=== PATIENT | male | born 1990 | race Caucasian/White ===

== ENCOUNTER 2019-04-08 08:55 | Day surgery (SDC) | payer OTHER ==
[~2019-04-08 08:55] MED LIST: DEXAMETHASONE SOD PHOSPHATE INJ 4 MG/1 ML VIAL ONE; FENTANYL CITRATE INJ/PF 250 MCG/5 ML AMPULE ONE; LIDOCAINE 0.5% INJ-PF (5 MG/ML) 50 ML SDV ONE; MIDAZOLAM 2 MG/2 ML INJ ONE; ONDANSETRON HCL INJ/PF 4 MG/2 ML SDV ONE; PROPOFOL INJ 200 MG/20 ML VIAL IV ONE
[2019-04-08] MEDS ORDERED: CEFAZOLIN SODIUM 2 GM in DEXTROSE 5%-WATER 100 ML IV ONE (09:30)
[2019-04-08 10:14] LABS: ABSOLUTE EOSINOPHILS # (AUTO) 0.4 10^3/uL (0.0-0.6); ABSOLUTE LYMPHOCYTES (AUTO) 1.6 10^3/uL (0.5-4.7); ABSOLUTE MONOCYTES (AUTO) 0.7 10^3/uL (0.1-1.4); ABSOLUTE NEUT (AUTO) 3.4 10^3/uL (1.7-8.2); BASOPHILS % (AUTO) 0.7 % (0-2); EOSINOPHILS % (AUTO) 6.2 % (0-6); HEMATOCRIT 40.3 % (37.9-51.0); HEMOGLOBIN 14.6 g/dL (13.5-17.0); LYMPHOCYTES % (AUTO) 26.5 % (13-45); MEAN CORPUSCULAR HEMOGLOBIN 29.6 pg (27.0-33.4); MEAN CORPUSCULAR HGB CONC 36.1 g/dL (32.0-36.0); MEAN CORPUSCULAR VOLUME 82 fl (80-97); MONOCYTES % (AUTO) 10.9 % (3-13); PLATELET COUNT 193 10^3/uL (150-450); RED BLOOD COUNT 4.92 10^6/uL (4.35-5.55); RED CELL DISTRIBUTION WIDTH 12.9 % (11.5-14.0); SEGMENTED NEUTROPHILS % (AUTO) 55.7 % (42-78); TOTAL CELLS COUNTED % (AUTO) 100 %; WHITE BLOOD COUNT 6.1 10^3/uL (4.0-10.5)
[2019-04-08 10:29] LABS: ANION GAP 9 (5-19); BLOOD UREA NITROGEN 13 mg/dL (7-20); CALCIUM 9.2 mg/dL (8.4-10.2); CARBON DIOXIDE 25 mmol/L (22-30); CHLORIDE 107 mmol/L (98-107); GLUCOSE 87 mg/dL (75-110); POTASSIUM 4.2 mmol/L (3.6-5.0)
[2019-04-08] MEDS ORDERED: FENTANYL CITRATE INJ/PF 100 MCG/2 ML AMPUL ONE (11:52)
[2019-04-08] MEDS ORDERED: BUPIVACAINE HCL 0.5 % INJ/PF 30 ML SDV ONE (12:16)
[2019-04-08] MEDS ORDERED: ROPIVACAINE HCL 0.5% INJ/PF (5 MG/1 ML) 30 ML SDV ONE (14:26)
[2019-04-08] MEDS ORDERED: LIDOCAINE 1%/EPINEPHRINE INJ 20 ML VIAL ONE ×2 (14:26→14:27)
[2019-04-08] MEDS ORDERED: LIDOCAINE 2% INJ (20 MG/ML) 20 ML MDV ONE (14:26)
[2019-04-08] MEDS ORDERED: DIPHENHYDRAMINE HCL 50 MG/ML VIAL IV PRN (14:45)
[2019-04-08] MEDS ORDERED: MORPHINE SULFATE 10 MG/ML INJ IV PRN (14:45)
[2019-04-08] MEDS ORDERED: FENTANYL CITRATE INJ/PF 100 MCG/2 ML AMPUL IV PRN ×3 (14:45)
[2019-04-08] MEDS ORDERED: PROMETHAZINE HCL INJ 25 MG/1 ML VIAL IV PRN ×2 (14:45)
[2019-04-08] MEDS ORDERED: MEPERIDINE HCL/PF INJ 25 MG/1 ML DISP.SYRIN IV PRN (14:45)
[2019-04-08] MEDS ORDERED: HYDROMORPHONE HCL INJ/PF 2 MG/ML AMPULE IV PRN (15:00)
[2019-04-08] MEDS ORDERED: OXYCODONE-ACETAMINOPHEN 5-325 MG TABLET PO PRN (15:00)
[2019-04-08] MEDS ORDERED: ONDANSETRON HCL INJ/PF 4 MG/2 ML SDV IV PRN (15:00)
--- NOTE | 2019-04-08 15:00 | Operative Report ---
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 Right diagnostic arthroscopy with debridement TFCC tear. 2. Open reduction fixation proximal scaphoid nonunion with distal radius autograft SURGEON: JACOB HEBERT ANESTHESIA: GA COMPLICATIONS: None ESTIMATED BLOOD LOSS: Minimal PROCEDURE: Indication for above procedure: 28-year-old male with history of injury to his right wrist. Patient had continued pain. Radiographs and MRI were then performed demonstrating proximal pole scaphoid nonunion. At that point I discussed treatment options with the patient including operative versus nonoperative intervention. Risk and benefits of operative procedure were explained patient verbalized understanding consented for surgical procedure. Procedure In Detail: Patient was seen and evaluated in the preoperative holding area. The RIGHT upper extremity was initialized and marked. Patient received 2g of Ancef IV for bacterial prophylaxis. Patient was taken back to the operative room where transferred to the operative table and placed under general anesthesia. Once they were adequately anesthetized a nonsterile tourniquet was placed on the upper extremity. A surgical team debriefing was performed ensuring all instrumentation was available, the surgical procedure was discussed with possible concerns reviewed. The upper extremity was prepped with chlorhexidine and alcohol and draped in a sterile fashion. A timeout was done identifying correct patient, procedure and extremity everyone in attendance agree with this and verbalized no concerns. The extremity was exsanguinated the tourniquet was inflated to 250 mmHg. Patient was placed in 15 pounds of traction 3-4 portal was established arthroscope was introduced into the radiocarpal joint. Diagnostic arthroscopy was performed demonstrating no evidence of scapholunate membranous. Radial scaphoid capitate/long and short radiolunate ligaments remained intact. There was central TFCC tear with fraying of the underlying distal ulna. A 6U was established with an arthroscopic biter the edges of the TFCC were debrided along with the arthroscopic shaver. Synovitis within the prestyloid recess was noted and partial synovectomy performed. Remainder of the TFCC tear was debrided with arthroscopic wand until the edges were a smooth surface. Further diagnostic arthroscopy demonstrated no evidence of dorsal scapholunate ligament injury at that point decision was made to proceed with fixation of the proximal scaphoid. Longitudinal skin incision was made just ulnar to Lorrie's tubercle. Blunt dissection was performed. Any peripheral veins were coagulated bipolar cautery distal portion of the third dorsal compartment was opened and the EPL tendon retracted. T-shaped capsulotomy was made within the radiocarpal joint. Under direct visualization the proximal scaphoid fracture was noted with intact cartilage along its volar and radial aspect. Scapholunate ligament remained intact without evidence of widening or disruption. Small defect noted dorsally. Debridement was then performed to the proximal and distal fragment down to normal appearing cancellus bone. A small cortical window was placed adjacent to Lorrie's tubercle and cancellus autograft was obtained. This was then impacted in a 10 cc syringe to further compress the bone graft. Wound was copiously irrigated with normal saline. Bone graft was densely impacted into the cavitary region of the scaphoid. C-arm fluoroscopy was then obtained demonstrating acceptable alignment of the scaphoid. K wire was placed perpendicular to the fracture to maintain reduction. Given the small size of the fragment decision was made to proceed with fixation utilizing mini fragmentary screws as opposed to headless compression screw. Appropriate sized K wire was passed through the proximal and distal fragment and measured to the appropriate depth. Countersink was utilized. A 22 mm 1.7 mm cortex screw was then placed across the fragment. Once again drilling with a K wire a second point 0.7 mm x 22 mm screw was placed. At completion the screws were comfortably countersunk below the articular cartilage. There is no crepitus with range of motion. C-arm fluoroscopy was then obtained confirming appropriate placement of the screws perpendicular to the fracture. Bony defect within the distal radius was filled with cancellus bone chips. Periosteum was closed interrupted 3-0 Vicryl suture to avoid attritional injury to the EPL tendon. Wound was then copiously irrigated with normal saline. Capsule was closed with interrupted 3-0 Ethibond suture. Tourniquet was d eflated. Any peripheral bleeding was controlled with bipolar cautery. Subcutaneous tissues were closed with 4-0 Monocryl suture. Skin was closed with subcuticular 4-0 Monocryl reinforced with Dermabond and Steri-Strips. Patient was placed in a 3 inch volar splint. Sponge counts, instrument counts, needle counts were correct. Patient was then awoken from anesthesia. Transferred from the operating room table to the operating room stretcher. There was no intraoperative complications patient tolerated procedure well stable to PACU. Postoperative plan: Patient follow in the office in 2 weeks at which point we will obtain radiographs and transition to short arm cast. Patient will begin bone stimulator immediately.
--- NOTE | 2019-04-08 15:00 | Discharge Summary ---
Discharge Summary (SDC) - Discharge Final Diagnosis: Right scaphoid nonunion. Date of Surgery: 04/08/19 Discharge Date: 04/08/19 Condition: Good Treatment or Instructions: Schedule Follow Up w/ Dr. Chad Mcintosh @ [facility] for Surgery to be seen in 10-14 days or as scheduled [place]: [place]: [place]: Ice and elevate Keep splint clean/dry/intact, do not remove. If your fingers become numb please unwrap the Perico wrap but leave the splint in place, if the sensation does not return within 30 minutes please return to the emergency department. May begin finger range of motion attempting to make full fist. Please use ibuprofen (Motrin or Advil) 600-800 mg every 8 hours as needed for pain or fever DO NOT TAKE w/ TORADOL may use once TORADOL complete. You may also use acetaminophen (Tylenol) 1000 mg every 4-6 hours as needed for pain or fever. Please be aware that many medications contain acetaminophen, do not exceed a total of 1000 mg of acetaminophen every 6 hours. If ibuprofen and acetaminophen are not sufficient for your pain you may take the Percocet/Ephrata. Please be aware that the Percocet/Ephrata does contain Tylenol. Stool softener of choice when on pain medication. USE OF [id number] IBUPROFEN: Ibuprofen (Advil, Nuprin, Medipren, Motrin IB) is a medication for fever and pain control. In addition, it has anti- inflammatory effects which may be beneficial, especially in the treatment of injuries. It's best to take ibuprofen with food. Persons with ulcer disease or allergy to aspirin should notify their physician of this before taking ibuprofen. Ibuprofen can be given every four to six hours, for a total of four doses daily. Age Pain or fever dose Antiinflammatory dose 6-8 yr 200 mg (1 tab) 200 mg (1 tab) 9-11 yr 200 mg (1 tab) 200-400 mg (1-2 tab) 11-14 yr 200-400 mg (1-2 tab) 400 mg (2 tab) 15-adult 400 mg (2 tab) 600 mg (3 tab) ORAL NARCOTIC MEDICATION: You have been given a prescription for pain control. This medication is a narcotic. It's best taken with food, as nausea can result if taken on an empty stomach. Don't operate machinery or drive within six hours of taking this medication. Do not combine this medicine with alcohol, or with any medication which can cause sedation (such as cold tablets or sleeping pills) unless you get permission from the physician. Narcotics tend to cause constipation. If possible, drink plenty of fluids and eat a diet high in fiber and fruits. Please be aware that prescription narcotics also have the potential for abuse. People become addicted to these medications because of the general sense of wellbeing that they induce. This feeling along with a significant reduction in tension, anxiety, and aggression provides a stimulating seductive quality to these drugs. Once your pain is under control, we encourage you to discard your unused narcotics. Referrals: AMY SHLEDON MD [Primary Care Provider] - Discharge Diet: As Tolerated Respiratory Treatments at Home: Deep Breathing/Coughing, Incentive Spirometer Discharge Activity: No Lifting Over 10 Pounds, No Lifting/Push/Pulling Report the Following to Your Physician Immediately: Fever over 101 Degrees, Unusual Bleeding, Redness, Swelling, Warmth, Increased Soreness
--- NOTE | 2019-04-08 15:46 | RADIOLOGY REPORT (SQ) ---
EXAM DESCRIPTION: WRIST RIGHT 2 VIEWS COMPLETED DATE/TIME: 04/08/2019 3:37 pm REASON FOR STUDY: ORIF SCAPHOID M25.531 PAIN IN RIGHT WRIST COMPARISON: None. FLUOROSCOPY TIME: 1 minutes 8 seconds 6 images saved to PACS. TECHNIQUE: Intra-operative images acquired during surgical procedure to evaluate progress. NUMBER OF IMAGES: 6 LIMITATIONS: None. FINDINGS: Fluoroscopic images from ORIF scaphoid fracture with 2 orthopedic screws. Alignment is an atomic. IMPRESSION: IMAGE(S) OBTAINED DURING PROCEDURE. COMMENT: Quality ID [id number]: Final reports for procedures using fluoroscopy that document radiation exp osure indices, or exposure time and number of fluorographic images (if radiation exposure indices are not available) Please consult full operative report of the attending physician for description of the procedure. TECHNICAL DOCUMENTATION: JOB ID: [id number] [employer]- All Rights Reserved Reading location - IP/workstation name: [email or web address]
--- NOTE | 2019-04-08 16:04 | RADIOLOGY REPORT (SQ) ---
EXAM DESCRIPTION: NO CHG FLUORO COMPLETE DATE/TIME: 04/08/2019 3:37 pm REASON FOR STUDY: ORIF SCAPHOID M25.531 PAIN IN RIGHT WRIST FINDINGS: Please see combined report for performance of procedure and radiologic supervision and int erpretation. IMPRESSION: Please see combined report for performance of procedure and radiologic supervision and i nterpretation. Reading location - IP/workstation name: [email or web address]
[2019-04-08 17:31] VITALS: BP 124/72
== END 2019-04-08 16:55 | disposition home or self-care (01) ==
LOC: OROUT 08:55
PROVIDERS: ATTEND Orthopaedic Surgery
DX: S62.031K Displaced fracture of proximal third of navicular [scaphoid] bone of right wrist, subsequent encounter for fracture with nonunion (principal); X58.XXXD Exposure to other specified factors, subsequent encounter; S63.591A Other specified sprain of right wrist, initial encounter; X58.XXXA Exposure to other specified factors, initial encounter; Y93.61 Activity, american tackle football; M25.531 Pain in right wrist
CPT/HCPCS: 36415; 85025; 80048; 73100; 01830; 25440; 29846; J2795; J2250; J3490 ×3; J0690; J1100; J3010; J2405; J7060; J2704

== ENCOUNTER 2019-08-19 05:46 | Day surgery (SDC) | payer OTHER ==
[2019-08-14 10:04] LABS: ABSOLUTE BASOPHILS # (AUTO) 0.1 10^3/uL (0.0-0.2); ABSOLUTE EOSINOPHILS # (AUTO) 0.4 10^3/uL (0.0-0.6); ABSOLUTE LYMPHOCYTES (AUTO) 1.5 10^3/uL (0.5-4.7); ABSOLUTE MONOCYTES (AUTO) 0.7 10^3/uL (0.1-1.4); ABSOLUTE NEUT (AUTO) 3.9 10^3/uL (1.7-8.2); BASOPHILS % (AUTO) 0.9 % (0-2); EOSINOPHILS % (AUTO) 6.1 % (0-6); HEMATOCRIT 42.7 % (37.9-51.0); HEMOGLOBIN 15.5 g/dL (13.5-17.0); LYMPHOCYTES % (AUTO) 22.5 % (13-45); MEAN CORPUSCULAR HEMOGLOBIN 29.9 pg (27.0-33.4); MEAN CORPUSCULAR HGB CONC 36.4 g/dL (32.0-36.0); MEAN CORPUSCULAR VOLUME 82 fl (80-97); MONOCYTES % (AUTO) 10.7 % (3-13); PLATELET COUNT 228 10^3/uL (150-450); RED BLOOD COUNT 5.19 10^6/uL (4.35-5.55); RED CELL DISTRIBUTION WIDTH 13.3 % (11.5-14.0); SEGMENTED NEUTROPHILS % (AUTO) 59.8 % (42-78); TOTAL CELLS COUNTED % (AUTO) 100 %; WHITE BLOOD COUNT 6.5 10^3/uL (4.0-10.5)
[2019-08-14 10:26] LABS: ANION GAP 9 (5-19); BLOOD UREA NITROGEN 17 mg/dL (7-20); CALCIUM 9.8 mg/dL (8.4-10.2); CARBON DIOXIDE 26 mmol/L (22-30); CHLORIDE 103 mmol/L (98-107); GLUCOSE 79 mg/dL (75-110); POTASSIUM 4.7 mmol/L (3.6-5.0)
[~2019-08-19 05:46] MED LIST changes: +CEFAZOLIN 2 GM/D5W RTU 2 GM/50 ML RTUPB IV PRN; -DEXAMETHASONE SOD PHOSPHATE INJ 4 MG/1 ML VIAL ONE; -FENTANYL CITRATE INJ/PF 250 MCG/5 ML AMPULE ONE; +LACTATED RINGERS 1000 ML IV PRN; -LIDOCAINE 0.5% INJ-PF (5 MG/ML) 50 ML SDV ONE; +LIDOCAINE 0.5% INJ-PF (5 MG/ML) 50 ML SDV SUBCUT PRN; -MIDAZOLAM 2 MG/2 ML INJ ONE; -ONDANSETRON HCL INJ/PF 4 MG/2 ML SDV ONE; -PROPOFOL INJ 200 MG/20 ML VIAL IV ONE
[2019-08-19] MEDS ORDERED: CEFAZOLIN 2 GM/D5W RTU 2 GM/50 ML RTUPB IV ONE (06:22)
[2019-08-19] MEDS ORDERED: MIDAZOLAM 2 MG/2 ML INJ ONE (06:27)
[2019-08-19] MEDS ORDERED: FENTANYL CITRATE INJ/PF 100 MCG/2 ML AMPUL ONE ×2 (06:27→10:32)
[2019-08-19] MEDS ORDERED: DEXAMETHASONE SOD PHOSPHATE INJ 4 MG/1 ML VIAL ONE (06:27)
[2019-08-19] MEDS ORDERED: ONDANSETRON HCL INJ/PF 4 MG/2 ML SDV ONE (06:27)
[2019-08-19] MEDS ORDERED: PROPOFOL INJ 200 MG/20 ML VIAL IV ONE (06:28)
[2019-08-19] MEDS ORDERED: LIDOCAINE 0.5% INJ-PF (5 MG/ML) 50 ML SDV ONE (06:34)
[2019-08-19] MEDS: BUPIVACAINE HCL 0.5 % INJ/PF 30 ML SDV ONE ×3 (08:20→10:03)
[2019-08-19] MEDS ORDERED: MORPHINE SULFATE 10 MG/ML INJ IV PRN ×2 (09:53→10:25)
[2019-08-19] MEDS ORDERED: MEPERIDINE HCL/PF INJ 25 MG/1 ML DISP.SYRIN IV PRN (09:53)
[2019-08-19] MEDS ORDERED: DIPHENHYDRAMINE HCL 50 MG/ML VIAL IV PRN (09:53)
[2019-08-19] MEDS ORDERED: FENTANYL CITRATE INJ/PF 100 MCG/2 ML AMPUL IV PRN ×3 (09:53)
[2019-08-19] MEDS ORDERED: PROMETHAZINE HCL INJ 25 MG/1 ML VIAL IV PRN ×2 (09:53)
[2019-08-19] MEDS ORDERED: ONDANSETRON HCL INJ/PF 4 MG/2 ML SDV IV PRN ×2 (09:53→10:25)
[2019-08-19] MEDS ORDERED: OXYCODONE-ACETAMINOPHEN 5-325 MG TABLET PO PRN (10:25)
--- NOTE | 2019-08-19 10:25 | Operative Report ---
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 Initial surgery was attempted to reconstruct proximal pole scaphoid nonunion with local distal radius autograft unfortunately patient continued to progress nonunion at that point we discussed treatment options including operative versus nonoperative intervention. Decision was made to proceed with proximal hamate autograft. Risk and benefits of surgical procedure were explained patient verbalized understanding consented for surgical procedure. Procedure In Detail: Patient was seen and evaluated in the preoperative holding area. The RIGHT upper extremity was initialized and marked. Patient received 2g of Ancef IV for bacterial prophylaxis. Patient was taken back to the operative room where transferred to the operative table and placed under general anesthesia. Once they were adequately anesthetized a nonsterile tourniquet was placed on the upper extremity. A surgical team debriefing was performed ensuring all instrumentation was available, the surgical procedure was discussed with possible concerns reviewed. The upper extremity was prepped with chlorhexidine and alcohol and draped in a sterile fashion. A timeout was done identifying correct patient, procedure and extremity everyone in attendance agree with this and verbalized no concerns. The extremity was exsanguinated the tourniquet was inflated to 250 mmHg. Prior skin incision was utilized extending proximally and distally. Blunt dissection was performed. Small peripheral veins were coagulated with bipolar cautery. Superficial radial nerve was identified and retracted. Extensor retinaculum was then opened along the line of the third dorsal compartment and extensor tendons elevated proximal aspect remained intact. This exposed the wrist capsule. A capsule sparing capsulotomy was then made which was radial based. Dimensions of the capsulotomy were confirmed with C arm fluoroscopy. Adequate exposure of the capitate hamate joint was confirmed with C arm fluoroscopy as well. Proximal aspect of the scaphoid was then identified. There was small chondral defect along the distal radius however remaining cartilage remained intact without abnormality. The proximal pole of the scaphoid was identified including the fracture line. Prior screws were successfully removed. Proximal pole of the scaphoid was then excised maintaining the scapholunate ligament. The remaining distal scaphoid was then debrided with a rondure and curette until normal bleeding cancellus bone was identified. Attention then turned to harvesting of the hamate graft. Dimension of the hamate graft was confirmed with the prior scaphoid fragment and remaining defect at the proximal pole of the scaphoid. Once dimensions were confirmed C arm fluoroscopy was obtained to identify the hamate hook. The hamate graft was then measured. Hohmann retractor was placed along the triquetral hamate articulation to protect the triquetral hamate ligament. Oscillating saw and irrigation was then utilized to initiate the hamate cut which was then completed with a osteotome. The capitate hamate ligament was elevated from the anterior surface of the capitate to to use for later scapholunate ligament repair. Wound was then copiously irrigated with normal saline. The hamate fragment was then inserted along the proximal pole of the scaphoid and rotated 180 degrees so that the capitate hamate ligament with malfunction as the scapholunate ligament. A derotational K wire was placed C arm fluoroscopy was obtained confirming appropriate fit of the hamate graft once appropriate fit was confirmed then proceeded with fixation. Care was placed into the center center position of the hamate graft and distal scaphoid. Measured to be 28 mm thus a 24 mm screw was to be used. K wire was overdrilled and 24 mm mini Acutrak screw was inserted which provided interfragmentary compression at the scaphoid fracture site. C-arm was obtained confirming congregation of scaphoid height with appropriate placement and size of the hamate graft. Derotational K wire was then removed. There was no evidence of DISI deformity of the lunate. The scapholunate ligament was then repaired with interrupted 2-0 Ethibond suture. Wrist was placed through full range of motion there is no evidence of scapholunate instability or midcarpal instability on clinical examination or fluoroscopy. Normal scapholunate angle was noted on lateral view. Wound was then irrigated with normal saline. Capsule was reapproximated with interrupted 2-0 Ethibond suture. 30 cc of 0.5% of bupivacaine without epinephrine was injected for postop pain control. Extensor retinaculum was closed with interrupted 3-0 Monocryl suture. Tourniquet was then deflated any peripheral bleeding was controlled with bipolar cautery. Subcutaneous tissues were closed with interrupted 3-0 Monocryl suture. Skin was closed with running subcuticular 4-0 Monocryl reinforced with Dermabond and Steri-Strips. Patient was placed in a volar resting splint. Sponge counts, instrument counts, needle counts were correct. Patient was then awoken from anesthesia. Transferred from the operating room table to the operating room stretcher. There was no intraoperative complications patient tolerated procedure well stable to PACU. Postoperative plan: Patient will follow in the office in 2 weeks at which point we will obtain radiographs. Patient will begin bone stimulator immediately. Will be placed in a thumb spica cast at follow-up.
--- NOTE | 2019-08-19 10:25 | Discharge Summary ---
Discharge Summary (SDC) - Discharge Final Diagnosis: Right proximal pole scaphoid nonunion Date of Surgery: 08/19/19 Discharge Date: 08/19/19 Condition: Good Treatment or Instructions: Schedule Follow Up w/ Dr. Chad Mcintosh @ [facility] for Surgery to be seen in 10-14 days or as scheduled [place]: [place]: [place]: Ice and elevate Keep splint clean/dry/intact, do not remove. If your fingers become numb please unwrap the Perico wrap but leave the splint in place, if the sensation does not return within 30 minutes please return to the emergency department. May begin finger range of motion attempting to make full fist. Please use ibuprofen (Motrin or Advil) 600-800 mg every 8 hours as needed for pain or fever DO NOT TAKE w/ TORADOL may use once TORADOL complete. You may also use acetaminophen (Tylenol) 1000 mg every 4-6 hours as needed for pain or fever. Please be aware that many medications contain acetaminophen, do not exceed a total of 1000 mg of acetaminophen every 6 hours. If ibuprofen and acetaminophen are not sufficient for your pain you may take the Percocet/Lutcher. Please be aware that the Percocet/Lutcher does contain Tylenol. Stool softener of choice when on pain medication. USE OF [id number] IBUPROFEN: Ibuprofen (Advil, Nuprin, Medipren, Motrin IB) is a medication for fever and pain control. In addition, it has anti- inflammatory effects which may be beneficial, especially in the treatment of injuries. It's best to take ibuprofen with food. Persons with ulcer disease or allergy to aspirin should notify their physician of this before taking ibuprofen. Ibuprofen can be given every four to six hours, for a total of four doses daily. Age Pain or fever dose Antiinflammatory dose 6-8 yr 200 mg (1 tab) 200 mg (1 tab) 9-11 yr 200 mg (1 tab) 200-400 mg (1-2 tab) 11-14 yr 200-400 mg (1-2 tab) 400 mg (2 tab) 15-adult 400 mg (2 tab) 600 mg (3 tab) ORAL NARCOTIC MEDICATION: You have been given a prescription for pain control. This medication is a narcotic. It's best taken with food, as nausea can result if taken on an empty stomach. Don't operate machinery or drive within six hours of taking this medication. Do not combine this medicine with alcohol, or with any medication which can cause sedation (such as cold tablets or sleeping pills) unless you get permission from the physician. Narcotics tend to cause constipation. If possible, drink plenty of fluids and eat a diet high in fiber and fruits. Please be aware that prescription narcotics also have the potential for abuse. People become addicted to these medications because of the general sense of wellbeing that they induce. This feeling along with a significant reduction in tension, anxiety, and aggression provides a stimulating seductive quality to these drugs. Once your pain is under control, we encourage you to discard your unused narcotics. Prescriptions: Oxycodone HCl/Acetaminophen [Percocet 7.5-325 mg Tablet] 1 tab PO Q6 PRN #25 tab PRN Reason: Referrals: AMY SHELDNO MD [Primary Care Provider] - Respiratory Treatments at Home: Deep Breathing/Coughing Discharge Activity: No Driving, No Lifting Over 10 Pounds, No Lifting/Push/Pulling Report the Following to Your Physician Immediately: Fever over 101 Degrees, Unusual Bleeding, Redness, Swelling, Warmth, Increased Soreness
[2019-08-19] MEDS ORDERED: OXYCODONE-ACETAMINOPHEN 5-325 MG TABLET ONE (11:16)
--- NOTE | 2019-08-19 13:04 | RADIOLOGY REPORT (SQ) ---
EXAM DESCRIPTION: NO CHG FLUORO; WRIST RIGHT 3 VIEWS IMAGES COMPLETED DATE/TIME: 08/19/2019 10:33 am REASON FOR STUDY: ORIF RT SCAPHOID ASSISTED WITH FLUORO IN OR COMPARISON: None. FLUOROSCOPY TIME: 57 seconds 6 Images saved to PACS LIMITATIONS: None. PROCEDURE: ORIF scaphoid fracture FINDINGS: Images from fluoro document the procedure. IMPRESSION: ORIF right scaphoid fracture. Refer to operative note for further information. COMMENT: PQRS 6045F: Fluoroscopy time of the procedure is documented in the report. TECHNICAL DOCUMENTATION: JOB ID: [id number] 2010 [email or web address]- All Rights Reserved Reading location - IP/workstation name: [email or web address]
--- NOTE | 2019-08-19 13:04 | RADIOLOGY REPORT (SQ) ---
EXAM DESCRIPTION: NO CHG FLUORO; WRIST RIGHT 3 VIEWS IMAGES COMPLETED DATE/TIME: 08/19/2019 10:33 am REASON FOR STUDY: ORIF RT SCAPHOID ASSISTED WITH FLUORO IN OR COMPARISON: None. FLUOROSCOPY TIME: 57 seconds 6 Images saved to PACS LIMITATIONS: None. PROCEDURE: ORIF scaphoid fracture FINDINGS: Images from fluoro document the procedure. IMPRESSION: ORIF right scaphoid fracture. Refer to operative note for further information. COMMENT: PQRS 6045F: Fluoroscopy time of the procedure is documented in the report. TECHNICAL DOCUMENTATION: JOB ID: [id number] 2010 [employer]- All Rights Reserved Reading location - IP/workstation name: [email or web address]
[2019-08-19 13:37] VITALS: BP 130/72
== END 2019-08-19 12:30 | disposition home or self-care (01) ==
LOC: OROUT 05:46
PROVIDERS: ATTEND Orthopaedic Surgery
DX: S62.031K Displaced fracture of proximal third of navicular [scaphoid] bone of right wrist, subsequent encounter for fracture with nonunion (principal); X58.XXXD Exposure to other specified factors, subsequent encounter; M25.531 Pain in right wrist
CPT/HCPCS: 20680; 36415; 85025; 87635; 80048; 73110; 25440; J2250; J3490 ×2; J1100; J3010; J2405; J2704; J0690; C9803; C1713; C1769